=== PATIENT | female | born 1975 | race Caucasian/White ===

== ENCOUNTER → 2017-06-18 | Outpatient (CLI) | payer OTHER ==
[~2017-06-18] MED LIST: METHACHOLINE KIT (J7674) INH ONE
--- NOTE | 2017-06-18 09:58 | PFTRPT ---
Tech: Kaleb Viramontes [employer] Age: 41 Sex: Female Race: Height: 66.00 Inches Weight: 141.00 Lbs BSA: 1.72 Diagnosis: R06.00 METHACHOLINE CHALLENGE REPORT: ORDERING PROVIDER: Jose Modi MD DATE OF SERVICE: 06/18/17 INTERPRETATION: The study was of excellent technical quality. Under protocol, methacholine was administered. At a dose of 10 mg (63.875 CDUs), a 25% decline in the FEV1 was noted. The PC20 of 7.21 does meet criteria for a positive study. Flow rates returned to baseline post bronchodilator administration. IMPRESSION: Positive methacholine challenge study. MTDD
== END ==
LOC: M CARPUL 08:53
PROVIDERS: ATTEND Internal Medicine Pulmonary Disease
DX: R06.00 Dyspnea, unspecified (principal)
CPT/HCPCS: 94070; J7674

== ENCOUNTER → 2017-12-16 | Outpatient (REF) | payer OTHER ==
[2017-12-16 11:39] LABS: VITAMIN B12 LEVEL 579 PG/ML
[2017-12-16 11:49] LABS: FOLATE 11.1 NG/ML
== END ==
LOC: M LABNEURO 09:30
DX: E53.8 Deficiency of other specified B group vitamins (principal)

== ENCOUNTER 2018-05-01 08:50 | Day surgery (SDC) | payer OTHER ==
[~2018-05-01 08:50] MED LIST changes: +LIDOCAINE 2% INJ 100 MG/5 ML SDV (FOR ANES.) As Ordered; -METHACHOLINE KIT (J7674) INH ONE
[2018-05-01] MEDS: NS 1,000 ML IV (09:00)
[2018-05-01] MEDS ORDERED: PROPOFOL 200 MG/20 ML VIAL As Ordered ×2 (09:12→09:39)
[2018-05-01] MEDS ORDERED: fentaNYL 100 MCG/2 ML INJECTION (J3010) As Ordered (09:13)
== END 2018-05-01 10:30 | disposition home or self-care (01) ==
LOC: M OPP 08:50
DX: R13.10 Dysphagia, unspecified (principal); K29.70 Gastritis, unspecified, without bleeding; R00.2 Palpitations; R00.0 Tachycardia, unspecified; K21.9 Gastro-esophageal reflux disease without esophagitis; R12 Heartburn; D64.9 Anemia, unspecified; M19.90 Unspecified osteoarthritis, unspecified site; M79.7 Fibromyalgia; J45.909 Unspecified asthma, uncomplicated; F32.9 Major depressive disorder, single episode, unspecified; F41.9 Anxiety disorder, unspecified; Z88.1 Allergy status to other antibiotic agents; Z88.8 Allergy status to other drugs, medicaments and biological substances; Z88.2 Allergy status to sulfonamides; Z79.899 Other long term (current) drug therapy; Z80.8 Family history of malignant neoplasm of other organs or systems; Z80.41 Family history of malignant neoplasm of ovary
CPT/HCPCS: 43239

== ENCOUNTER → 2018-07-31 | Outpatient (CLI) | payer OTHER | LOC: M RAD 17:01 | DX: R10.32 Left lower quadrant pain (principal) | CPT/HCPCS: 74176 ==

== ENCOUNTER → 2018-11-05 | Outpatient (REF) | payer OTHER ==
[~2018-11-05] MED LIST changes: +DILT120C77 PO; -LIDOCAINE 2% INJ 100 MG/5 ML SDV (FOR ANES.) As Ordered; +NIAC250T3 PO; +PULM90IN INH; +VITA500046 PO
[2018-11-05 12:38] LABS: BASO % 0.6 % (0.0-1.0); EOS # 0.2 10^3/uL (0.0-0.50); EOS % 3.3 % (0.0-3.0); HEMATOCRIT 42.6 % (36.0-47.0); HEMOGLOBIN 14.1 g/dl (12.0-15.5); LYMPH # 1.2 10^3/uL (1.5-4.5); MEAN CORPUSCULAR HEMOGLOBIN 33.6 pg (27.0-33.0); MEAN CORPUSCULAR HGB CONC 33.1 g/dl (32.0-36.5); MEAN CORPUSCULAR VOLUME 101.4 fl (80.0-96.0); MONO # 0.4 10^3/uL (0.0-0.8); MONO % 6.8 % (0.0-5.0); NEUTROPHILS # 3.3 10^3/uL (1.8-7.7); NEUTROPHILS % 64.9 % (36.0-66.0); PLATELET COUNT, AUTOMATED 254 10^3/uL (150-450); WHITE BLOOD COUNT 5.1 10^3/uL (4.0-10.0)
[2018-11-05 13:36] LABS: BLOOD UREA NITROGEN 8 MG/DL (7-18); CALCIUM LEVEL 8.8 MG/DL (8.5-10.1); CARBON DIOXIDE LEVEL 27 MEQ/L (21-32); CHLORIDE LEVEL 107 MEQ/L (98-107); CREATININE FOR GFR 0.63 MG/DL (0.55-1.30); GLOMERULAR FILTRATION RATE > 60.0 (>58); GLUCOSE, FASTING 88 MG/DL (70-100); MAGNESIUM LEVEL 2.9 MG/DL (1.8-2.4); POTASSIUM SERUM 4.3 MEQ/L (3.5-5.1); SODIUM LEVEL 142 MEQ/L (136-145); TOTAL 25(OH) VITAMIN D 30.5 NG/ML (30.0-100.0)
== END ==
LOC: M LABDRAW1 12:32
PROVIDERS: ATTEND Physician Assistant
DX: R06.00 Dyspnea, unspecified (principal); E55.9 Vitamin D deficiency, unspecified; E83.42 Hypomagnesemia; E87.6 Hypokalemia

== ENCOUNTER → 2018-11-12 | Outpatient (CLI) | payer OTHER | LOC: M SMT 14:34 | PROVIDERS: ATTEND Physician Assistant | DX: E83.41 Hypermagnesemia (principal) ==

== ENCOUNTER → 2018-11-19 | Outpatient (CLI) | payer OTHER ==
[2018-11-19 16:03] LABS: BASO % 0.6 % (0.0-1.0); EOS # 0.2 10^3/uL (0.0-0.50); EOS % 2.8 % (0.0-3.0); HEMATOCRIT 37.9 % (36.0-47.0); LYMPH # 1.7 10^3/uL (1.5-4.5); LYMPH % 26.3 % (24.0-44.0); MEAN CORPUSCULAR HEMOGLOBIN 33.5 pg (27.0-33.0); MEAN CORPUSCULAR HGB CONC 34.3 g/dl (32.0-36.5); MEAN CORPUSCULAR VOLUME 97.7 fl (80.0-96.0); MONO # 0.5 10^3/uL (0.0-0.8); MONO % 7.6 % (0.0-5.0); NEUTROPHILS % 62.2 % (36.0-66.0); PLATELET COUNT, AUTOMATED 240 10^3/uL (150-450); RED BLOOD COUNT 3.88 10^6/uL (4.00-5.40); WHITE BLOOD COUNT 6.5 10^3/uL (4.0-10.0)
[2018-11-19 16:39] LABS: COMPLEMENT C4 14 MG/DL (10-40); IMMUNOGLOBULIN A 32.9 MG/DL (70-400); IMMUNOGLOBULIN G 738 MG/DL (681-1648); IMMUNOGLOBULIN M 77.8 MG/DL (40-230)
[2018-11-19 16:56] LABS: IMMUNOGLOBULIN E < 3.6 IU/ML (<100)
[2018-11-25 14:12] LABS: STREP PNEUMO TYPE 1 <0.1 ug/mL (>1.3); STREP PNEUMO TYPE 12F <0.1 ug/mL (>1.3); STREP PNEUMO TYPE 14 11.4 ug/mL (>1.3); STREP PNEUMO TYPE 18C <0.1 ug/mL (>1.3); STREP PNEUMO TYPE 19A 0.8 ug/mL (>1.3); STREP PNEUMO TYPE 19F 1.6 ug/mL (>1.3); STREP PNEUMO TYPE 23F <0.1 ug/mL (>1.3); STREP PNEUMO TYPE 3 0.5 ug/mL (>1.3); STREP PNEUMO TYPE 4 <0.1 ug/mL (>1.3); STREP PNEUMO TYPE 6B <0.1 ug/mL (>1.3); STREP PNEUMO TYPE 7F 13.3 ug/mL (>1.3); STREP PNEUMO TYPE 8 <0.1 ug/mL (>1.3); STREP PNEUMO TYPE 9N 3.5 ug/mL (>1.3); STREP PNEUMO TYPE 9V 0.9 ug/mL (>1.3)
[2018-11-26 00:09] LABS: COMPLEMENT TOTAL (CH50) 60 U/mL (>41); IgA ULTRASENSITIVE 32.2 mg/dL (72-321)
== END ==
LOC: M LAB 15:18
PROVIDERS: ATTEND Allergy & Immunology Allergy
DX: Z01.84 Encounter for antibody response examination (principal)

== ENCOUNTER → 2018-11-26 | Outpatient (REF) | payer OTHER ==
[2018-12-02 10:21] LABS: RUBELLA IgG QUALITATIVE IMMUNE (IMMUNE)
== END ==
LOC: M LAB REF 11:26
PROVIDERS: ATTEND Allergy & Immunology Allergy
DX: Z01.84 Encounter for antibody response examination (principal)

== ENCOUNTER → 2018-11-26 | Outpatient (CLI) | payer OTHER ==
[2018-11-26 17:29] LABS: C REACTIVE PROTEIN QUANTITATIV < 0.30 MG/DL (0.00-0.30); RHEUMATOID FACTOR QUANT < 10.0 IU/ML (<15.0)
[2018-11-26 17:39] LABS: VITAMIN B12 LEVEL 525 PG/ML (247-911)
[2018-11-30 00:07] LABS: ANA (HEP2) Negative (.); CYCLIC CITRULLINATED PEPTIDE 5 units (0-19); TISSUE TRANSGLUTAMINASE IgA <2 U/mL (0-3); TISSUE TRANSGLUTAMINASE IgG <2 U/mL (0-5)
== END ==
LOC: M SMT 15:48
PROVIDERS: ATTEND Family Medicine
DX: R21 Rash and other nonspecific skin eruption (principal); M25.50 Pain in unspecified joint; D64.9 Anemia, unspecified

== ENCOUNTER → 2019-01-29 | Outpatient (REF) | payer OTHER ==
[2019-02-03 18:27] LABS: STREP PNEUMO TYPE 1 12.7 ug/mL (>1.3); STREP PNEUMO TYPE 12F <0.1 ug/mL (>1.3); STREP PNEUMO TYPE 14 >21.7 ug/mL (>1.3); STREP PNEUMO TYPE 18C >14.7 ug/mL (>1.3); STREP PNEUMO TYPE 19A 1.3 ug/mL (>1.3); STREP PNEUMO TYPE 19F 7.4 ug/mL (>1.3); STREP PNEUMO TYPE 23F 3.1 ug/mL (>1.3); STREP PNEUMO TYPE 3 >9.6 ug/mL (>1.3); STREP PNEUMO TYPE 4 0.7 ug/mL (>1.3); STREP PNEUMO TYPE 6B >30.8 ug/mL (>1.3); STREP PNEUMO TYPE 7F >16.9 ug/mL (>1.3); STREP PNEUMO TYPE 8 0.1 ug/mL (>1.3); STREP PNEUMO TYPE 9N 3.1 ug/mL (>1.3); STREP PNEUMO TYPE 9V 6.2 ug/mL (>1.3)
== END ==
LOC: M LAB REF 15:55
PROVIDERS: ATTEND Nurse Practitioner Family
DX: D84.9 Immunodeficiency, unspecified (principal); D80.2 Selective deficiency of immunoglobulin A [IgA]

== ENCOUNTER 2019-03-07 17:36 | Emergency (ER) | payer OTHER ==
[~2019-03-07] VITALS: Ht 167.6 cm; Wt 79.5 kg
[2019-03-07] MEDS ORDERED: NS 1,000 ML IV SCH (17:55)
[2019-03-07] MEDS ORDERED: KETOROLAC 30 MG/ML VIAL (J1885) IV ONE (18:00)
[2019-03-07] MEDS ORDERED: ONDANSETRON 4MG/2ML VIAL (J2405) IV ONE (18:00)
[2019-03-07 18:26] LABS: BASO % 0.2 % (0.0-1.0); EOS % 0.2 % (0.0-3.0); HEMATOCRIT 32.2 % (36.0-47.0); HEMOGLOBIN 11.1 g/dl (12.0-15.5); LYMPH # 0.4 10^3/uL (1.5-4.5); LYMPH % 3.4 % (24.0-44.0); MEAN CORPUSCULAR HEMOGLOBIN 33.4 pg (27.0-33.0); MEAN CORPUSCULAR HGB CONC 34.5 g/dl (32.0-36.5); MONO # 0.7 10^3/uL (0.0-0.8); MONO % 5.1 % (0.0-5.0); NEUTROPHILS # 11.8 10^3/uL (1.8-7.7); NEUTROPHILS % 90.6 % (36.0-66.0); PLATELET COUNT, AUTOMATED 235 10^3/uL (150-450); RED BLOOD COUNT 3.32 10^6/uL (4.00-5.40)
[2019-03-07 18:37] LABS: INR 1.02; PROTHROMBIN TIME 13.1 SECONDS (11.8-14.0)
[2019-03-07 18:51] LABS: ALBUMIN 3.1 GM/DL (3.2-5.2); ALT/SGPT 50 U/L (12-78); BILIRUBIN,DIRECT 0.3 MG/DL (0.0-0.2); BILIRUBIN,TOTAL 0.7 MG/DL (0.2-1.0); BLOOD UREA NITROGEN 7 MG/DL (7-18); CALCIUM LEVEL 8.8 MG/DL (8.5-10.1); CARBON DIOXIDE LEVEL 23 MEQ/L (21-32); CHLORIDE LEVEL 104 MEQ/L (98-107); CREATININE FOR GFR 0.77 MG/DL (0.55-1.30); GLOMERULAR FILTRATION RATE > 60.0 (>58); GLUCOSE, FASTING 105 MG/DL (70-100); LIPASE 97 U/L (73-393); POTASSIUM SERUM 3.5 MEQ/L (3.5-5.1); SODIUM LEVEL 135 MEQ/L (136-145); TOTAL PROTEIN 6.4 GM/DL (6.4-8.2)
--- NOTE | 2019-03-07 19:07 | REPVR ---
EXAM: CT Abdomen and Pelvis Without Contrast EXAM DATE/TIME: 03/07/2019 6:23 PM CLINICAL HISTORY: 43 years old, female; Abdominal pain; Flank; Right; Additional info: Bilat flank pain hematuria TECHNIQUE: Imaging protocol: Axial computed tomography images of the abdomen and pelvis without contrast. Coronal and sagittal reformatted images were created and reviewed. Radiation optimization: All CT scans at this facility use at least one of these dose optimization techniques: automated exposure control; mA and/or kV adjustment per patient size (includes targeted exams where dose is matched to clinical indication); or iterative reconstruction. COMPARISON: CT ABD PELVIS W/O CONTRAST 07/31/2018 5:19 PM FINDINGS: Lungs: No suspicious mass or airspace process in the visualized lung bases. Liver: Noncontrast liver shows no obvious lesion. It is enlarged, measuring 20 cm Gallbladder and bile ducts: Gallbladder is present and shows no evidence of gallstone. Pancreas: Noncontrast pancreas shows no obvious mass or adjacent fluid. Spleen: Noncontrast spleen shows no obvious focal deformity. Adrenals: Adrenal glands are normal in appearance. Kidneys and ureters: Kidneys demonstrate no calculi. Mild left renal collecting system and left ureter dilatation without stone. No right ureter dilatation or stone. Stomach and bowel: No evidence of small bowel obstruction. Appendix: Normal caliber appendix is identified, with no adjacent inflammation. Intraperitoneal space: No pneumoperitoneum. Vasculature: Normal. No abdominal aortic aneurysm. Lymph nodes: No bulky lymphadenopathy. Bladder: Bladder appears normal. Reproductive: Uterus is surgically absent. Bones/joints: Bony structures show no acute fracture or destructive process. Soft tissues: Unremarkable. Other findings: Limited evaluation without enteric or IV contrast. IMPRESSION: 1. No evidence of renal stone or obstruction. No explanation for acute flank pain. 2. Hepatomegaly Electronically signed by: Sherman Alvarado On 03/07/2019 19:07:28 PM
[2019-03-07] MEDS ORDERED: ACETAMINOPHEN 325 MG TAB PO ONE (19:15)
[2019-03-07 19:20] VITALS: BP 124/74
[2019-03-07] MEDS ORDERED: AUGM875T28 PO (19:55)
[2019-03-07] MEDS ORDERED: NORC1TAB7 PO (19:55)
[2019-03-07] MEDS ORDERED: AUGMENTIN 875 MG TAB PO ONE (20:00)
== END 2019-03-07 20:23 | disposition home or self-care (01) ==
LOC: M ED 17:36
DX: N10 Acute pyelonephritis (principal); I51.9 Heart disease, unspecified; J45.909 Unspecified asthma, uncomplicated; R16.0 Hepatomegaly, not elsewhere classified; Z79.899 Other long term (current) drug therapy; Z88.2 Allergy status to sulfonamides; Z88.1 Allergy status to other antibiotic agents; Z88.8 Allergy status to other drugs, medicaments and biological substances

== ENCOUNTER → 2020-02-07 | Outpatient (CLI) | payer OTHER ==
[~2020-02-07] MED LIST changes: +AUGM875T28 PO; +NORC1TAB7 PO
[2020-02-07 17:17] LABS: BASO % 0.6 % (0.0-1.0); EOS # 0.1 10^3/uL (0.0-0.5); EOS % 2.2 % (0.0-3.0); HEMATOCRIT 40.3 % (36.0-47.0); HEMOGLOBIN 13.4 g/dl (12.0-15.5); LYMPH # 1.7 10^3/uL (1.5-5.0); LYMPH % 27.1 % (24.0-44.0); MEAN CORPUSCULAR HEMOGLOBIN 33.3 pg (27.0-33.0); MEAN CORPUSCULAR HGB CONC 33.3 g/dl (32.0-36.5); MONO # 0.4 10^3/uL (0.0-0.8); MONO % 7.1 % (0.0-5.0); NEUTROPHILS # 3.9 10^3/uL (1.5-8.5); NEUTROPHILS % 62.7 % (36.0-66.0); PLATELET COUNT, AUTOMATED 277 10^3/uL (150-450); RED BLOOD COUNT 4.03 10^6/uL (4.00-5.40); WHITE BLOOD COUNT 6.2 10^3/uL (4.0-10.0)
[2020-02-07 17:57] LABS: ALBUMIN 3.9 GM/DL (3.2-5.2); ALT/SGPT 20 U/L (12-78); BILIRUBIN,TOTAL 0.5 MG/DL (0.2-1.0); BLOOD UREA NITROGEN 8 MG/DL (7-18); C REACTIVE PROTEIN QUANTITATIV < 0.30 MG/DL (0.00-0.30); CALCIUM LEVEL 8.4 MG/DL (8.5-10.1); CARBON DIOXIDE LEVEL 30 MEQ/L (21-32); CHLORIDE LEVEL 107 MEQ/L (98-107); CREATININE FOR GFR 0.79 MG/DL (0.55-1.30); FERRITIN 51 NG/ML (8-252); FREE T4 1.12 NG/DL (0.76-1.46); GLOMERULAR FILTRATION RATE > 60.0 (>58); GLUCOSE, FASTING 81 MG/DL (70-100); IRON (FE) 81 UG/DL (50-170); PERCENT SATURATION 31.4 % (13.2-45.0); POTASSIUM SERUM 4.1 MEQ/L (3.5-5.1); RHEUMATOID FACTOR QUANT < 10.0 IU/ML (<15.0); SODIUM LEVEL 140 MEQ/L (136-145); TOTAL IRON BINDING CAPACITY 258 UG/DL (250-450); TOTAL PROTEIN 6.6 GM/DL (6.4-8.2)
[2020-02-07 20:10] LABS: FOLATE 16.7 NG/ML; VITAMIN B12 LEVEL 388 PG/ML
[2020-02-09 19:07] LABS: EBV VIRAL CAPSID AG IgM <36.0 U/mL (0.0-35.9); Lyme Disease IgG/IgM Antibodie <0.91 ISR (0.00-0.90); Lyme Disease IgM Ab Quantitati <0.80 index (0.00-0.79)
== END ==
LOC: M WUC 14:36
PROVIDERS: ATTEND Physician Assistant
DX: R53.82 Chronic fatigue, unspecified (principal)

== ENCOUNTER → 2020-06-30 | Outpatient (CLI) | payer OTHER ==
[~2020-06-30] MED LIST changes: +HYDR1000 PO; +K2 P1TAB PO; +MELA3CAP2 PO; +[UNRECOGNIZED DRUG - CODE] PO
--- NOTE | 2020-07-04 13:01 | SLEEPHOME ---
DATE: 06/30/2020 ORDERED BY: RENY Guadarrama Diagnostic home sleep testing was performed due to concern for the obstructive sleep apnea syndrome. For testing, a nocturnal T3 respiratory monitoring device was used. Continuous record was made of pulse, oxygen saturation, air flow, chest and abdominal strain, and body position. Nine hours and 59 minutes of data were reviewed. There were 7 hours and 56 minutes marked as time in bed. During the interval marked time in bed, there were 61 respiratory events identified of 10 seconds in duration or greater for a respiratory event index of 7.7. The events were obstructive. Baseline pulse rate was 75. Pulse rate ranged 60 to 113. Baseline saturation was 95%. Saturations fell to 89%. Testing was performed in both the supine and nonsupine positions. IMPRESSION: Abnormal home sleep testing with repetitive respiratory events and oxygen desaturations to 89% with a respiratory event index of 7.7 is consistent with the obstructive sleep apnea syndrome. RECOMMENDATION: The patient should be encouraged to undergo a formal sleep evaluation. [facility]
== END ==
LOC: M SLEEP HO 12:53
PROVIDERS: ATTEND Physician Assistant
DX: R40.0 Somnolence (principal)